=== PATIENT | female | born 1965 | race Caucasian/White ===

== ENCOUNTER 2024-10-18 22:48 | Emergency (ER) | payer OTHER ==
[~2024-10-18] VITALS: Ht 152.4 cm; Wt 58.1 kg
[2024-10-18 23:53] LABS: BASO % 0.4 % (0.0-1.0); EOS # 0.1 10*3/uL (0.0-0.4); EOS % 1.8 % (1.0-4.0); HEMATOCRIT 38.5 % (37.0-47.0); MEAN CELL VOLUME 93.2 fl (81.0-99.0); MEAN CORPUSCULAR HGB 30.3 pg (27.0-31.0); MEAN CORPUSCULAR HGB CONC 32.5 g/dl (33.0-37.0); MEAN PLATELET VOLUME 9.1 fl (9.6-12.3); MONO # 0.7 10*3/uL (0.1-1.0); MONO % 8.5 % (3.0-9.0); NEUT # 3.6 10*3/uL (2.3-7.9); NEUT % 47.5 % (47.0-73.0); PLATELET COUNT AUTOMATED 266 10*3/uL (130-400); RED BLOOD COUNT 4.13 10*6/uL (4.10-5.10); RED CELL DISTRI WIDTH 13.2 % (0-14.5); WHITE BLOOD COUNT 7.6 10*3/uL (4.8-10.8)
[2024-10-19 00:20] LABS: ALKALINE PHOSPHATASE 60 U/L (46-116); BUN 17 mg/dl (9-23); CHLORIDE 105 mmol/L (98-107); CPK 116 U/L (34-171); ETHYL ALCOHOL < 3.0 mg/dl (<3); POTASSIUM 3.8 mmol/L (3.4-5.1); SGPT/ALT 12 U/L (5-49); TOTAL PROTEIN 6.5 gm/dL (6.0-8.0)
[2024-10-19 03:03] LABS: BILIRUBIN Negative (Negative); BLOOD 1+ (Negative); CLARITY Clear (Clear); COLOR Yellow (Yellow); GLUCOSE Negative (Negative); KETONE Negative (Negative); LEUKO ESTERASE 2+ (Negative); NITRITE Negative (Negative); SPECIFIC GRAVITY 1.015 (1.001-1.030)
[2024-10-19 03:10] LABS: URINE AMPHETAMINES Negative (1000ng/ml); URINE BARBITURATES Negative (200ng/ml); URINE BENZODIAZEPINES Negative (200ng/ml); URINE CANNABINOIDS (THC) Negative (50ng/ml); URINE COCAINE Negative (300ng/ml); URINE METHADONE Negative (300ng/ml); URINE OPIATES Negative (300ng/ml); URINE PHENCYCLIDINE Negative (25ng/ml)
[2024-10-19 03:40] LABS: EPITHELIAL CELLS 21-30; WBC 16-20 wbc/hpf (0-5)
[2024-10-19 03:41] LABS: BACTERIA TRACE
[2024-10-19] MEDS ORDERED: Fosfomycin Tromethamine 3 GM PDS PO ONE (04:40)
[2024-10-19] MEDS ORDERED: CEPHALEXIN500 M1 PO (10:04)
[2024-10-19] MEDS ORDERED: LAMICTAL200 MG PO (22:09)
[2024-10-19] MEDS ORDERED: DEPAKOTE500 M2 PO (22:09)
[2024-10-20] MEDS ORDERED: SUMATRIPTAN SUC50 M1 PO (09:48)
[2024-10-20] MEDS ORDERED: FLUPHENAZINE HYD PO (09:48)
== END 2024-10-19 10:30 | disposition home or self-care (01) ==
LOC: ED 22:48
PROVIDERS: Nurse Practitioner Family
DX: F63.9 Impulse disorder, unspecified (principal); F31.9 Bipolar disorder, unspecified; Z20.822 Contact with and (suspected) exposure to COVID-19

== ENCOUNTER 2024-10-19 21:48 | Inpatient (IN) | payer OTHER ==
[~2024-10-19] VITALS: Ht 157.4 cm; Wt 56.9 kg
[~2024-10-19 21:48] MED LIST: CEPHALEXIN500 M1 PO
[2024-10-19 22:00] VITALS: BP 158/68
[2024-10-19] MEDS ORDERED: LAMICTAL200 MG PO (22:09)
[2024-10-19] MEDS ORDERED: DEPAKOTE500 M2 PO (22:09)
[2024-10-20 00:45] LABS: BASO # 0.1 10*3/uL (0.0-0.1); BASO % 0.6 % (0.0-1.0); EOS # 0.2 10*3/uL (0.0-0.4); EOS % 2.2 % (1.0-4.0); HEMATOCRIT 40.1 % (37.0-47.0); MEAN CELL VOLUME 93.7 fl (81.0-99.0); MEAN CORPUSCULAR HGB 30.4 pg (27.0-31.0); MEAN CORPUSCULAR HGB CONC 32.4 g/dl (33.0-37.0); MEAN PLATELET VOLUME 8.8 fl (9.6-12.3); MONO # 0.6 10*3/uL (0.1-1.0); MONO % 7.5 % (3.0-9.0); NEUT # 3.1 10*3/uL (2.3-7.9); NEUT % 39.5 % (47.0-73.0); PLATELET COUNT AUTOMATED 269 10*3/uL (130-400); RED BLOOD COUNT 4.28 10*6/uL (4.10-5.10); RED CELL DISTRI WIDTH 13.2 % (0-14.5); WHITE BLOOD COUNT 7.9 10*3/uL (4.8-10.8)
[2024-10-20 01:07] LABS: BUN 13 mg/dl (9-23); CHLORIDE 106 mmol/L (98-107); CPK 107 U/L (34-171); POTASSIUM 3.8 mmol/L (3.4-5.1)
[2024-10-20 01:11] LABS: ETHYL ALCOHOL < 3.0 mg/dl (<3)
[2024-10-20 05:21] VITALS: BP 110/34
[2024-10-20 06:18] LABS: BILIRUBIN Negative (Negative); BLOOD Negative (Negative); CLARITY Clear (Clear); COLOR Yellow (Yellow); GLUCOSE Negative (Negative); KETONE Trace (Negative); LEUKO ESTERASE 1+ (Negative); NITRITE Negative (Negative); PH 5.5 (4.5-8.0); SPECIFIC GRAVITY 1.025 (1.001-1.030)
[2024-10-20 06:27] LABS: URINE AMPHETAMINES Negative (1000ng/ml); URINE BARBITURATES Negative (200ng/ml); URINE BENZODIAZEPINES Negative (200ng/ml); URINE CANNABINOIDS (THC) Negative (50ng/ml); URINE COCAINE Negative (300ng/ml); URINE METHADONE Negative (300ng/ml); URINE OPIATES Negative (300ng/ml); URINE PHENCYCLIDINE Negative (25ng/ml)
[2024-10-20 06:38] LABS: BACTERIA 1+
[2024-10-20] MEDS ORDERED: SUMATRIPTAN SUC50 M1 PO (09:48)
[2024-10-20] MEDS ORDERED: FLUPHENAZINE HYD PO (09:48)
[2024-10-20] MEDS ORDERED: ACETAMINOPHEN 325 MG TAB PO PRN (09:55)
[2024-10-20] MEDS ORDERED: MG-AL HYDROXIDE/SIMETICONE 30 ML UDC PO PRN (09:55)
[2024-10-20] MEDS ORDERED: Magnesium Hydroxide 30 ML UDC PO PRN (09:55)
[2024-10-20] MEDS ORDERED: LORazepam 1 MG TAB PO PRN (10:05)
[2024-10-20] MEDS ORDERED: Ziprasidone Mesylate 20 MG VIAL IM PRN (10:10)
[2024-10-20] MEDS ORDERED: hydrOXYzine hydrochloride 50 MG/ML VIAL IM PRN (10:10)
[2024-10-20 10:11] VITALS: BP 147/53
[2024-10-20] MEDS ORDERED: SUMAtriptan SUCCINATE 50 MG TAB PO PRN (10:55)
[2024-10-20] MEDS ORDERED: CEPHALEXIN 500 MG CAP PO SCH (14:00)
[2024-10-20 20:00] VITALS: BP 128/66
[2024-10-20] MEDS ORDERED: DIVALPROEX (DR) 500 MG TAB PO SCH (21:00)
[2024-10-20] MEDS ORDERED: Paliperidone 6 MG TER PO SCH (21:00)
[2024-10-20] MEDS ORDERED: LAMOTRIGINE 100 MG TAB PO SCH ×2 (21:00)
[2024-10-21 07:28] LABS: VITAMIN D, 25-HYDROXY 30.1 ng/mL (30-100)
[2024-10-21 07:49] LABS: ALKALINE PHOSPHATASE 52 U/L (46-116); BUN 14 mg/dl (9-23); CHLORIDE 106 mmol/L (98-107); CHOLESTEROL 199 mg/dL (<200); LDL CHOLESTEROL 123 mg/dL (9-159); POTASSIUM 4.4 mmol/L (3.4-5.1); SGPT/ALT 12 U/L (5-49); TRIGLYCERIDES 132 mg/dl (<150)
[2024-10-21 08:00] VITALS: BP 104/53
[2024-10-21 20:00] VITALS: BP 126/63
[2024-10-22 08:00] VITALS: BP 116/45
[2024-10-22 20:00] VITALS: BP 125/50
[2024-10-23 08:31] VITALS: BP 124/53
[2024-10-23 20:00] VITALS: BP 134/60
[2024-10-24 06:28] LABS: BASO % 0.4 % (0.0-1.0); EOS # 0.2 10*3/uL (0.0-0.4); EOS % 2.8 % (1.0-4.0); HEMATOCRIT 39.7 % (37.0-47.0); MEAN CELL VOLUME 93.9 fl (81.0-99.0); MEAN PLATELET VOLUME 8.7 fl (9.6-12.3); MONO # 0.5 10*3/uL (0.1-1.0); MONO % 7.6 % (3.0-9.0); NEUT # 2.6 10*3/uL (2.3-7.9); NEUT % 38.5 % (47.0-73.0); PLATELET COUNT AUTOMATED 261 10*3/uL (130-400); RED BLOOD COUNT 4.23 10*6/uL (4.10-5.10); RED CELL DISTRI WIDTH 12.9 % (0-14.5); WHITE BLOOD COUNT 6.7 10*3/uL (4.8-10.8)
[2024-10-24 07:40] LABS: ALKALINE PHOSPHATASE 57 U/L (46-116); BUN 11 mg/dl (9-23); CHLORIDE 104 mmol/L (98-107); POTASSIUM 4.7 mmol/L (3.4-5.1); SGPT/ALT 11 U/L (5-49); TOTAL PROTEIN 6.4 gm/dL (6.0-8.0)
[2024-10-24 08:00] VITALS: BP 132/72
[2024-10-24] MEDS ORDERED: RISPERIDONE SQ SCH ×2 (11:00→18:30)
[2024-10-24 20:00] VITALS: BP 157/68
[2024-10-25 07:03] LABS: CHOLESTEROL 210 mg/dL (<200); LDL CHOLESTEROL 133 mg/dL (9-159); TRIGLYCERIDES 100 mg/dl (<150)
[2024-10-25 08:00] VITALS: BP 153/95
[2024-10-25 10:18] VITALS: BP 152/88
[2024-10-25 20:00] VITALS: BP 138/62
[2024-10-25] MEDS ORDERED: Paliperidone 6 MG TER PO SCH (21:00)
[2024-10-26 08:22] VITALS: BP 126/79
[2024-10-26] MEDS ORDERED: PALIPERIDONE ER6 MG PO (12:12)
[2024-10-26] MEDS ORDERED: DIVALPROEX SOD500 MG PO (12:12)
== END 2024-10-26 12:59 | disposition home or self-care (01) | DRG 885 ==
LOC: ED 21:48 → 3N 10-20 09:44
PROVIDERS: Emergency Medicine; Nurse Practitioner Women's Health; ADMIT Psychiatry & Neurology Psychiatry; ATTEND Psychiatry & Neurology Psychiatry
PROC: GZHZZZZ Group Psychotherapy (ICD-10-PCS; principal; 2024-10-21)
PROC: GZ51ZZZ Individual Psychotherapy, Behavioral (ICD-10-PCS; 2024-10-21)
DX: F31.2 Bipolar disorder, current episode manic severe with psychotic features (principal); N30.00 Acute cystitis without hematuria; E44.0 Moderate protein-calorie malnutrition; G43.909 Migraine, unspecified, not intractable, without status migrainosus; R45.87 Impulsiveness; G43.109 Migraine with aura, not intractable, without status migrainosus; Z86.59 Personal history of other mental and behavioral disorders; Z82.49 Family history of ischemic heart disease and other diseases of the circulatory system; Z88.8 Allergy status to other drugs, medicaments and biological substances; Z79.899 Other long term (current) drug therapy; Z68.22 Body mass index [BMI] 22.0-22.9, adult